=== PATIENT | male | born 1965 ===

== ENCOUNTER 2018-09-07 05:14 | Observation (INO) | payer OTHER ==
[~2018-09-07] VITALS: Ht 157.5 cm; Wt 69.9 kg
[2018-09-07] VITALS (15 sets, daily range): BP systolic 100–121; BP diastolic 54–84
[~2018-09-07 05:14] MED LIST: ceFAZolin sod 2 GM in D5W 110 ML IVPB ONE
[2018-09-07] MEDS ORDERED: IBUPROFEN600 MG ORAL (06:01)
[2018-09-07] MEDS ORDERED: NAPROXEN500 M2 ORAL (06:01)
--- NOTE | 2018-09-07 07:08 | Anethesia Preoperative Eval ---
Anesthesia Pre-op PMH/ROS General Date of Evaluation: Sep 07, 2018 Anesthesiologist: Juanjose ASA Score: ASA 1 Mallampati Score Class I : Soft palate, uvula, fauces, pillars visible Class II: Soft palate, uvula, fauces visible Class III: Soft palate, base of uvula visible Class IV: Only hard plate visible Mallampati Classification: Class II Surgeon: Adelso Diagnosis: Lumbar radiculopathy Surgical Procedure: Right L3-4 and L4-5 microdecompression and microdiscectomy Anesthesia History: none Family History: no anesthesia problems Allergies: Coded Allergies: No Known Allergies (Unverified , 09/06/18) Patient NPO?: Yes NPO Date: Sep 06, 2018 NPO Time: 1999 Past Medical History Cardiovascular: Denies: HTN, CAD, PR, valve dz, arrhythmia, other Pulmonary: Denies: asthma, COPD, EMMY, other Gastrointestinal/Genitourinary: Denies: GERD, CRI, ESRD, other Neurologic/Psychiatric: Denies: dementia, CVA, depression/anxiety, TIA, other Endocrine: Denies: DM, hypothyroidism, steroids, other HEENT: Denies: cataract (L), cataract (R), glaucoma, TELLER (L), TELLER (R), other Hematology/Immune: Denies: anemia, DVT, bleeding disorder, other Musculoskeletal/Integumentary: Denies: OA, RA, DJD, DDD, edema, other PSxH Narrative: Right knee surgery Anesthesia Pre-op Phys. Exam Physician Exam Last Vital Signs Date Time Temp Pulse Resp B/P (MAP) Pulse Ox O2 Delivery O2 Flow Rate FiO2 09/07/18 06:20 Room Air 09/07/18 06:12 97.2 68 18 113/83 (93) 97 Constitutional: NAD Cardiovascular: RRR Respiratory: CTA Airway Exam Mallampati Score: Class II MO: full ROM: full Teeth: intact Anesthesia Pre-op A/P Labs see chart Studies Pre-op Studies: EKG - sr Risk Assessment & Plan Assessment: ASA I Plan: GA Status Change Before Surgery: No Pre-Antibiotics Drug: Vale Chairez MD Sep 07, 2018 07:08
[2018-09-07] MEDS ORDERED: LR 1000ml 1,000 ML IVLG SCH (07:09)
[2018-09-07] MEDS ORDERED: Vancomycin 1gm vial IVPB ONE (07:12)
[2018-09-07] MEDS ORDERED: Bacitracin 50000 Units Vial ONE (07:13)
[2018-09-07] MEDS ORDERED: Bupivacaine w/Epi 0.5% 30ml Vial INJ ONE (07:13)
[2018-09-07] MEDS ORDERED: Thrombin 5000 units TOPIC ONE ×2 (07:13→07:30)
[2018-09-07] MEDS ORDERED: Gelfoam Size TOPIC ONE (07:13)
[2018-09-07] MEDS ORDERED: Midazolam 2mg/2ml Inj IVP PRN (07:15)
[2018-09-07] MEDS ORDERED: DiphenhydrAMINE 50mg/ml Inj IVP PRN (07:15)
[2018-09-07] MEDS ORDERED: Hydromorphone 0.5mg/0.5ml inj IVP PRN (07:15)
[2018-09-07] MEDS ORDERED: LORazepam Inj 2mg/ml 1ml IV PRN (07:15)
[2018-09-07] MEDS ORDERED: Metoclopramide 10mg/2ml Inj IVP PRN ×2 (07:15→07:30)
[2018-09-07] MEDS ORDERED: fentaNYL 100 mcg/2 mL IV PRN (07:15)
--- NOTE | 2018-09-07 07:26 | Pre-Procedure Note/Attestation ---
Pre-Procedure Note/Attestation Complete Prior to Procedure Procedure Narrative: Right L34 and L45 microdecompression and microdiscectomy Indications for Procedure Pre-Operative Diagnosis: lumbar radiculopathy and hnp Attestation I attest that I discussed the nature of the procedure; its benefits; risks and complications; and alternatives (and the risks and benefits of such alternatives ), prior to the procedure, with the patient (or the patient's legal sales promotion representative). I attest that, if there was a reasonable possibility of needing a blood transfusion, the patient (or the patient's legal sales promotion representative) was given the [facility] standardized written summary, pursuant to the [place] Blood Safety Act ([place] Health and Safety Code # 1645, as amended). I attest that I re-evaluated the patient just prior to the surgery and that there has been no change in the patient's H&P, except as documented below: Sebas Darden MD Sep 07, 2018 07:26
[2018-09-07] MEDS ORDERED: Sterile Water Irrig 1000ml IRRIG ONE (07:30)
[2018-09-07] MEDS ORDERED: Propofol 1,000mg/ 100ml btl IV ONE (07:30)
[2018-09-07] MEDS ORDERED: Norco 5mg/325mg tab ORAL PRN (07:30)
[2018-09-07] MEDS ORDERED: LR 1000ml ONE (07:30)
[2018-09-07] MEDS ORDERED: HYDROcodone/Acetamin 7.5/325 tab ORAL PRN (07:30)
[2018-09-07] MEDS ORDERED: HYDROmorphone 1mg/ml Carpuject SUBQ PRN (07:30)
[2018-09-07] MEDS ORDERED: Naloxone 0.4mg/ml Inj IVP PRN (07:30)
[2018-09-07] MEDS ORDERED: Metoclopramide 10mg/2ml Inj ONE (07:30)
[2018-09-07] MEDS ORDERED: NS Irrig 1000ml ONE (07:30)
[2018-09-07] MEDS ORDERED: Dexamethasone 4mg/ml vial ONE (07:30)
[2018-09-07] MEDS ORDERED: Lidocaine 1% MPF 10mg/ml 5ml ONE ×2 (07:30→07:31)
--- NOTE | 2018-09-07 07:30 | Pre-Procedure Note/Attestation ---
Pre-Procedure Note/Attestation Indications for Procedure Pre-Operative Diagnosis: lumbar radiculopathy and hnp Attestation I attest that I discussed the nature of the procedure; its benefits; risks and complications; and alternatives (and the risks and benefits of such alternatives ), prior to the procedure, with the patient (or the patient's legal healthcare representative). I attest that, if there was a reasonable possibility of needing a blood transfusion, the patient (or the patient's legal healthcare representative) was given the [facility] standardized written summary, pursuant to the [place] Blood Safety Act ([place] Health and Safety Code # 1645, as amended). I attest that I re-evaluated the patient just prior to the surgery and that there has been no change in the patient's H&P, except as documented below: Sebas Darden MD Sep 07, 2018 07:30
[2018-09-07] MEDS ORDERED: Midazolam 2mg/2ml Inj ONE (07:31)
[2018-09-07] MEDS ORDERED: Propofol 200mg/20ml IV ONE (07:31)
[2018-09-07] MEDS ORDERED: fentaNYL 100 mcg/2 mL IV ONE (07:31)
--- NOTE | 2018-09-07 10:12 | Brief Operative Note ---
Immediate Post Operative Note Operative Note Pre-op Diagnosis: lumbar radiculopathy and hnp Procedure: Right L45 and L34 microdecompression and microdiscectomy Post-op Diagnosis: joleen Post-op Diagnosis: same as pre-op Findings: consistent w/pre-op dx studies Surgeon: Adelso Collar Baster: Danielle Anesthesiologist: Feliz Anesthesia: general Specimen: yes Complications: none Condition: stable Fluids: 1.7L Estimated Blood Loss: minimal - 75cc Drains: none Implant(s) used?: No Sebas Darden MD Sep 07, 2018 10:12
--- NOTE | 2018-09-07 10:24 | Immediate Post-Op Evaluation ---
Immediate Post-Op Evalulation Immediate Post-Op Evalulation Procedure: Right L3-4, L4-5 microdecompression and microdiscectomy Date of Evaluation: Sep 07, 2018 Time of Evaluation: 10:26 IV Fluids: 1.7L Blood Products: 0 Estimated Blood Loss: 75 Urinary Output: 300 Blood Pressure Systolic: 100 Blood Pressure Diastolic: 58 Pulse Rate: 96 Respiratory Rate: 16 O2 Sat by Pulse Oximetry: 99 Temperature (Fahrenheit): 97.3 Pain Score (1-10): 0 Nausea: No Vomiting: No Complications 0 Patient Status: awake, reacts, patent, none Hydration Status: adequate Drug: Ancef 2g Given Within 1 Hr of Incision: Yes Time Given: 07:35 Vale Haas MD Sep 07, 2018 10:24
--- NOTE | 2018-09-07 12:01 | Diagnostic Imaging Report ---
INDICATION: Pain, intraoperative TECHNIQUE: Intraoperative imaging Fluoroscopy time: 6.2 seconds Total dose: 0.30524 mGym2 Total number of images: One COMPARISON: None FINDINGS: Single lateral intraoperative image demonstrates a surgical tool posterior to what is presumably the L4 vertebral body. IMPRESSION: Intraoperative imaging, as described
[2018-09-07] MEDS: NS w/KCl 20mEq 1,000 ML IV SCH (15:07)
[2018-09-07] MEDS: HYDROcodone/Acetamin 7.5/325 tab ORAL PRN (15:15)
[2018-09-07] MEDS: Docusate 100mg cap ORAL SCH ×2 (17:50→22:37)
[2018-09-08] VITALS: BP 99/58
[2018-09-08] MEDS: NS w/KCl 20mEq 1,000 ML IV SCH (00:14)
[2018-09-08 04:00] VITALS: BP 101/60
--- NOTE | 2018-09-08 06:41 | 48 Hour Post Anesthesia Eval ---
Post Anesthesia Evaluation Procedure: Right L3-4, L4-5 microdecompression and microdiscectomy Date of Evaluation: Sep 08, 2018 Time of Evaluation: 06:00 Blood Pressure Systolic: 101 0: 60 Pulse Rate: 78 Respiratory Rate: 18 Temperature (Fahrenheit): 98.6 O2 Sat by Pulse Oximetry: 97 Airway: patent Nausea: No Vomiting: No Pain Intensity: 0 Hydration Status: adequate Cardiopulmonary Status: at baseline Mental Status/LOC: patient returned to baseline Post-Anesthesia Complications: 0 Follow-up care needed: N/A - further care as per primary team Vale Haas MD Sep 08, 2018 06:41
[2018-09-08] MEDS: HYDROcodone/Acetamin 7.5/325 tab ORAL PRN (07:21)
[2018-09-08 07:56] VITALS: BP 122/71
[2018-09-08] MEDS ORDERED: Docusate 100mg cap ORAL SCH (09:00)
[2018-09-08] MEDS ORDERED: NORCO 5-325 TA1 EACH ORAL (09:02)
[2018-09-08] MEDS ORDERED: CEPHALEXIN500 MG ORAL (09:03)
[2018-09-08] MEDS ORDERED: NAPROXEN250 MG ORAL (09:29)
--- NOTE | 2018-09-08 23:00 | Operative Note - Dictated ---
DATE OF OPERATION: 09/07/2018 PREOPERATIVE DIAGNOSIS: L3-L4 and L4-L5 disk protrusion with stenosis and annular tear at L4-L5 with right lower extremity radiculopathy. POSTOPERATIVE DIAGNOSIS: L3-L4 and L4-L5 disk protrusion with stenosis and annular tear at L4-L5 with right lower extremity radiculopathy. PROCEDURE PERFORMED: 1. Right-sided L3-L4 and right-sided L4-L5 interlaminar laminotomy, medial facetectomy, foraminotomy, and microdiskectomy. 2. Intraoperative use of microscope. 3. Intraoperative use of fluoroscopy. SURGEON: Sebas Darden M.D. ENVELOPE SEALER OPERATOR: Aquiles Santos M.D. ANESTHESIA: General endotracheal anesthesia. ANESTHESIOLOGIST: Dr. Piper. INTRAOPERATIVE FINDINGS: Stenosis on the right side at L3-L4 and L4-L5 with disk protrusion and impingement of the neural elements. ESTIMATED BLOOD LOSS: 50 mL. FLUIDS: 1 liter of crystalloid. INDICATIONS: This is a pleasant gentleman with failed nonoperative treatment and option for above treatment was given. Risks, alternatives, and benefits were discussed with the patient at length. Risks include but not limited to anesthesia complications including , medical complications including liver, kidney, cardiopulmonary deficits, bleeding, infection, dural tear, CSF leak, nerve root injury, pars fracture, instability, reherniation as well as continued symptoms. DESCRIPTION OF OPERATION: The patient was brought into the operating room supine on a stretcher. Subsequently, appropriate IV lines were placed and 2 g of Ancef was administered. Anesthesia was induced. The patient was successfully intubated. Sequential compression devices were placed onto the bilateral lower extremities. A Segura was placed under sterile conditions. The patient was gently turned over prone onto the Wilbert frame table. All bony prominences were well padded and the abdomen was assured to lay freely. The L4-L5 and L3-L4 interspace was positively identified via preoperative lateral fluoroscopy and an indelible marker was used to ivy the midline. The patient was prepped and draped in the usual sterile fashion with alcohol, chlorhexidine scrub, ChloraPrep, and Ioban draping. An incision was carried out over the midline and at this point, attention was diverted to the right side and a subperiosteal dissection of the laminas at L3-L4 and L4-L5 on the right side was done. A radiopaque marker was placed at the lower pedicle level and the L3-L4 and L4-L5 interspaces were positively identified. Attention was first diverted to the L3-L4 level. With a high-speed drill, straight and curved curettes, and #2 through #5 Kerrison punches, an inter-lumbar laminotomy, medial facetectomy, and a foraminotomy was accomplished. The ligamentum flavum was removed and complete decompression of the traversing and exiting nerve roots was accomplished. The medial aspect of the superior articular facet was removed until skeletonization of the L4 pedicle was accomplished and until the posterior aspect of the traversing nerve root was completely decompressed. At this point, a [place] 4 retractor was used to gently microdissect the neural elements medially and this was done with Midas-Vamshi drill with an intraoperatively sterilely draped microscope and a slit incision was carried out into the disk space and with pituitary rongeur, Veronica curette, [place] probe, and nerve hook, a microdiskectomy was done until all disk material that was impinging on the neural elements was removed and the floor of the canal was flat. Microirrigation was done. All loose disk debris material was removed until no further loose disk material. Significant amount of disk material during the case was sucked with the suction. The rest of it was passed on for specimen. Once this was accomplished, Valsalva 40 mmHg was done. There was no CSF leak. Attention now was diverted to the L4-L5 level where interlumbar laminotomy, medial facetectomy, and foraminotomy was done at the L4-L5 level. The neural elements were gently medially retracted with a [place] 4 retractor and nerve root retractor was used to retract the neural elements. A slit incision was made into the disk at the L4-L5 level and with the pituitary rongeurs, Veronica, Peapod, Wesley probe as well as a nerve hook, a diskectomy was accomplished. This was done with the aid of an intraoperatively sterilely draped microscope, which helped with microdissection of neural elements and once this was accomplished and the floor of the canal was flat and there was no further compression on the exiting L4 nerve root and the traversing L5 nerve root, Valsalva 40 mmHg was done. There was no CSF leak. Intradiscal irrigation was done. All loose debris was removed. Copious Triple Antibiotic solution was used and now attention was diverted to closure. Valsalva was done at 40 mmHg. There was no CSF leak and the dorsal lumbar fascia was closed with #1 Vicryl sutures in a watertight interrupted fashion. The subdermal and subcuticular layers were closed with 2-0 Vicryl sutures. Dermabond was placed. Sterile dressing and tape was placed. All sponge, needle, and instrument counts were correct. There were no complications during the case. The patient was turned supine, was extubated in stable condition, and was taken to the recovery room in stable condition and was found to be neurovascularly intact. Sebas Darden M.D. DR: KERRY JOB#: [id number] CC: YRIS
--- NOTE | 2018-09-14 13:57 | Discharge Summary ---
Discharge Summary Discharge Summary _ DATE OF ADMISSION: September 07, 2018 DATE OF DISCHARGE: September 08, 2018 DISCHARGED BY: Dr. Sebas Darden BRIEF HOSPITAL COURSE: Patient is a 53-year-old male, who was diagnosed with L3-L4 and L4-L5 disc protrusion with stenosis and annular tear at the L4-L5 with right lower extremity radiculopathy. He failed nonoperative treatment. He was admitted on September 07, 2018 and underwent right-sided L3-L4 and right-sided L4-L5 interlaminar laminotomy, medial facetectomy, foraminotomy and microdiscectomy. He tolerated procedure well. Surgery was uneventful. Post-operatively, patient was admitted for post-op care. He was placed on SCDs for DVT prophylaxis and was encouraged use of incentive spirometer. Patient was given pain management. He was seen by PT. Diet was advanced. Incision was clean, dry and intact. Patient was ambulating well with good pain control and was tolerating diet. Patient was eventually cleared for discharge home. PREOPERATIVE DIAGNOSIS: L3-L4 and L4-L5 disk protrusion with stenosis and annular tear at L4-L5 with right lower extremity radiculopathy. POSTOPERATIVE DIAGNOSIS: L3-L4 and L4-L5 disk protrusion with stenosis and annular tear at L4-L5 with right lower extremity radiculopathy. PROCEDURE PERFORMED: 1. Right-sided L3-L4 and right-sided L4-L5 interlaminar laminotomy, medial facetectomy, foraminotomy, and microdiskectomy. 2. Intraoperative use of microscope. 3. Intraoperative use of fluoroscopy. (Refer to Operative Report) DISCHARGE DISPOSITION: Patient was discharged home. DISHARGE MEDICATIONS: Refer to Medication Reconciliation Sheet. DISCHARGE INSTRUCTIONS: Post-op instructions given. Follow-up in a week. I have been assigned to complete a DC summary on this account, I was not involved with the patient's management. Valeria Valenzuela NP Sep 14, 2018 13:57
== END 2018-09-08 10:00 | disposition home or self-care (01) ==
LOC: INTOOBSV 05:14 → SDSOVERFLO 05:14 → 3E 11:45
DX: M51.16 Intervertebral disc disorders with radiculopathy, lumbar region (principal); M48.061 Spinal stenosis, lumbar region without neurogenic claudication
CPT/HCPCS: 36415; 63030; 63035; 72020; 76001; 86850; 86900; 86901; 87081; 96365; 96366; 97116; 97161; 97530; C8957; J0690; J1100; J1170; J2250; J2704; J2765; J3010; J3370; 94003; 94150